=== PATIENT | female | born 1995 | race African-American/Black ===

== ENCOUNTER 2021-09-09 00:17 | Emergency (ER) | payer SELFPAY ==
[~2021-09-09] VITALS: Ht 170.2 cm; Wt 100.0 kg
[2021-09-09 00:23] VITALS: BP 122/80
== END 2021-09-09 06:01 | disposition left against medical advice (07) ==
LOC: ER 00:17
DX: Z71.1 Person with feared health complaint in whom no diagnosis is made (principal); Z59.00 Homelessness unspecified
CPT/HCPCS: 99283